=== PATIENT | male | born 1995 | race Asian ===

== ENCOUNTER 2023-09-01 16:52 | Emergency (ER) | payer OTHER ==
[~2023-09-01] VITALS: Ht 157.5 cm; Wt 63.6 kg
[2023-09-01 16:53] VITALS: BP 132/70; TEMP 97; O2SAT 96
[2023-09-01] MEDS ORDERED: LIDOCAINE 2% MDV 20ML VIAL SC ONE (18:15)
[2023-09-01] MEDS ORDERED: CEPH500T PO (18:58)
[2023-09-01] MEDS: CEPHALEXIN 500 MG CAP PO ONE (19:07)
== END 2023-09-01 19:25 | disposition home or self-care (01) ==
LOC: M ED 16:52
DX: S61.012A Laceration without foreign body of left thumb without damage to nail, initial encounter (principal); X58.XXXA Exposure to other specified factors, initial encounter; Y92.009 Unspecified place in unspecified non-institutional (private) residence as the place of occurrence of the external cause; Y93.9 Activity, unspecified; Y99.9 Unspecified external cause status